=== PATIENT | female | born 1970 | race Caucasian/White ===

== ENCOUNTER 2019-11-08 17:19 | Emergency (ER) | payer BC ==
[~2019-11-08] VITALS: Ht 160 cm; Wt 54.5 kg
[2019-11-08 17:24] VITALS: BP 109/56; TEMP 98
[2019-11-08] MEDS ORDERED: SYNTHROID 0.0.025 MG PO (17:34)
[2019-11-08] MEDS ORDERED: PROZAC 10MG10 MG PO (17:35)
[2019-11-08 18:30] VITALS: PULSE 78
== END 2019-11-08 18:30 | disposition home or self-care (01) ==
LOC: COL.ER 17:19
DX: T25.221A Burn of second degree of right foot, initial encounter (principal); F32.9 Major depressive disorder, single episode, unspecified; E03.9 Hypothyroidism, unspecified; F17.210 Nicotine dependence, cigarettes, uncomplicated; T31.0 Burns involving less than 10% of body surface; X12.XXXA Contact with other hot fluids, initial encounter; Y92.009 Unspecified place in unspecified non-institutional (private) residence as the place of occurrence of the external cause

== ENCOUNTER → 2020-08-02 | Outpatient (CLI) | payer BC ==
[~2020-08-02] MED LIST: PROZAC 10MG10 MG PO; SYNTHROID 0.0.025 MG PO
== END ==
LOC: MC.RAD 14:37
DX: Z12.31 Encounter for screening mammogram for malignant neoplasm of breast (principal)

== ENCOUNTER → 2023-04-09 | Outpatient (CLI) | payer BC | LOC: MC.RAD 11:21 | DX: Z12.31 Encounter for screening mammogram for malignant neoplasm of breast (principal) ==

== ENCOUNTER → 2023-06-11 | Outpatient (CLI) | payer BC | LOC: COL.RAD 13:40 | DX: J44.9 Chronic obstructive pulmonary disease, unspecified (principal) ==